=== PATIENT | male | born 1950 | race Caucasian/White ===

== ENCOUNTER 2018-06-01 15:54 | Emergency (ER) | payer OTHER ==
[~2018-06-01] VITALS: Ht 177.8 cm; Wt 74.8 kg
--- NOTE | ~2018-06-01 | EKG ---
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[employer] [employer] : 1950 Requested By: Gela Saldana Order Number: [id number] MD: Christophe Urbina Measurements Intervals [place] Rate: 59 P: 78 MO: 162 QRS: 66 QRSD: 98 T: 76 QT: 387 QTc: 384 Interpretive Statements Sinus bradycardia Otherwise no significant abnormality No previous ECG available for comparison Electronically Signed On 06-01-2018 17:17:57 CDT by Christophe Urbina [email or web address] <ELECTRONICALLY SIGNED> By: Christophe Urbina MD, LOCATED WITHIN [facility] 06/01/18 1717 1706 1706 Christophe Urbina MD, FACC /EPI
[~2018-06-01 15:54] MED LIST: ACCUNEB0.63 MG/3 INH; ADVAIR 100-501 EACH INH; ADVAIR HFA 115-12 GM INH; ALBUTEROL2.5 MG/31 INH; ALLEGRA ALLERG180 MG PO; ALLEGRA180 MG PO; CELEXA 10 MG TA10 M1 PO; CELEXA20 MG PO; CENTRUM SILVER1 EAC2 PO; CLONAZEPAM 1 MG1 M1 PO; COMBIVENT INH; DALIRESP500 MCG PO; DOXYCYCLINE 10100 MG PO; FLEXERIL PO; KLONOPIN1 MG PO; MUCINEX TA600 MG/TA2 PO; NICOTINE TRANSD14 M1 TRANSDERM; PREDNISONE 10 M10 M1 PO; PREDNISONE 10 M10 MG PO; PREDNISONE 20 M20 MG PO; PREDNISONE50 MG PO; PROAIR HFA8.5 GM INH; QUETIAPINE FUMA50 MG PO; SIMVASTATIN20 MG PO; SINGULAIR 10 MG10 M1 PO; SINGULAIR 4 MG C4 M1 PO; SPIRIVA INH; ST. JOSEPH ASPI81 M1 PO; TESTOSTERO200 MG/1 M IM; VENTOLIN HFA 1818 GM INH; XOLAIR150 MG SUBQ; ZOLOFT100 MG PO; ZPAK PO; [UNRECOGNIZED DRUG - OTHER] PO
[2018-06-01 16:45] LABS: ABSOLUTE NEUTROPHILS 12.2 thou/uL (1.4-8.2); BASOPHILS 0.8 % (0.0-2.0); EOSINOPHILS 0.3 % (0.0-3.0); HEMATOCRIT 36.9 % (42.0-52.0); HEMOGLOBIN 12.2 gm/dL (14.0-18.0); LYMPHOCYTES 9.6 % (24.0-44.0); MCH 29.6 pg (26.0-34.0); MCHC 33.1 g/dL (28.0-37.0); MCV 89.3 fL (80.0-100.0); MONOCYTES 6.7 % (1.0-8.0); PLATELET COUNT 228 thou/uL (150-400); POLYS 82.6 % (36.0-66.0); RBC 4.14 mil/uL (4.50-6.00); RDW 13.7 % (10.5-14.5); WBC 14.8 thou/uL (4.0-11.0)
[2018-06-01 16:53] LABS: CALCIUM 8.7 mg/dL (8.5-10.1); POTASSIUM 4.2 mmol/L (3.5-5.1)
[2018-06-01 16:59] LABS: ALBUMIN 3.2 g/dL (3.4-5.0); TOTAL BILIRUBIN 0.7 mg/dL (<0.1-1.0); TOTAL PROTEIN 6.4 g/dL (6.4-8.2)
[2018-06-01 17:12] LABS: BE(vivo) 5.1 mmol/L (-2 to +3); HCO3 30.5 mmol/L (22.0-26.0); PO2 96.3 mmHg (80.0-100.0); pH 7.421 (7.360-7.450); sO2 97.4 % (92.0-98.0)
[2018-06-01 17:35] LABS: URINE BILIRUBIN NEGATIVE (Negative); URINE BLOOD TRACE (Negative); URINE CLARITY CLEAR; URINE COLOR YELLOW; URINE GLUCOSE-RANDOM* NEGATIVE (Negative); URINE KETONES NEGATIVE (Negative); URINE PROTEIN (DIPSTICK) NEGATIVE (Negative); URINE SPECIFIC GRAVITY 1.015 (1.005-1.035); URINE UROBILINOGEN 0.2 E.U./dl (0.2-1.0)
[2018-06-01 17:36] LABS: URINE LEUKOCYTES-REFLEX 3+ (Negative); URINE NITRITE-REFLEX POSITIVE (Negative)
[2018-06-01 17:43] LABS: BACTERIA-REFLEX >30 Many /HPF (None Seen); CASTS None Seen /LPF (None Seen); MUCUS 4-6 Moderate strn/LPF (None Seen); SQUAMOUS 0-3 Few /LPF (0-3); URINE WBC-REFLEX >25 Many /HPF (0-5)
[2018-06-01 17:44] LABS: CRYSTALS None Seen /LPF (None Seen); URINE RBC 0-2 Rare /HPF (0-2); WBC CLUMPS Moderate (None Seen)
[2018-06-01] MEDS ORDERED: BACTRIM DS TAB1 EACH PO (19:18)
== END 2018-06-01 19:32 | disposition home or self-care (01) ==
LOC: ER 15:54
PROVIDERS: Physician Assistant
DX: R60.0 Localized edema (principal); I95.1 Orthostatic hypotension; N39.0 Urinary tract infection, site not specified; F41.9 Anxiety disorder, unspecified; J44.9 Chronic obstructive pulmonary disease, unspecified; F17.210 Nicotine dependence, cigarettes, uncomplicated

== ENCOUNTER → 2019-12-22 | Outpatient (CLI) | payer OTHER ==
[~2019-12-22] MED LIST changes: +BACTRIM DS TAB1 EACH PO
== END ==
LOC: RAD 11:06
DX: J44.9 Chronic obstructive pulmonary disease, unspecified (principal); J45.40 Moderate persistent asthma, uncomplicated; J96.11 Chronic respiratory failure with hypoxia

== ENCOUNTER → 2019-12-30 | Outpatient (CLI) | payer OTHER | LOC: CAT 10:41 | DX: R91.8 Other nonspecific abnormal finding of lung field (principal); J45.50 Severe persistent asthma, uncomplicated; J44.1 Chronic obstructive pulmonary disease with (acute) exacerbation; J96.11 Chronic respiratory failure with hypoxia ==

== ENCOUNTER 2020-01-14 23:34 | Emergency (ER) | payer OTHER ==
[~2020-01-14] VITALS: Ht 188 cm; Wt 108.9 kg
[2020-01-14 23:42] VITALS: BP 139/70
[2020-01-15 00:12] LABS: ABSOLUTE NEUTROPHILS 7.5 thou/uL (1.4-8.2); EOSINOPHILS 0.9 % (0.0-3.0); HEMATOCRIT 45.1 % (42.0-52.0); HEMOGLOBIN 14.3 gm/dL (14.0-18.0); LYMPHOCYTES 19.9 % (24.0-44.0); MCH 29.7 pg (26.0-34.0); MCHC 31.8 g/dL (28.0-37.0); MCV 93.5 fL (80.0-100.0); MONOCYTES 7.5 % (1.0-8.0); PLATELET COUNT 314 thou/uL (150-400); POLYS 70.7 % (36.0-66.0); RBC 4.82 mil/uL (4.50-6.00); RDW 14.1 % (10.5-14.5); WBC 10.7 thou/uL (4.0-11.0)
[2020-01-15 00:14] LABS: POTASSIUM 3.7 mmol/L (3.5-5.1)
[2020-01-15 00:21] LABS: ALBUMIN 3.3 g/dL (3.4-5.0); DIRECT BILIRUBIN 0.1 mg/dL (<0.1-0.2); TOTAL BILIRUBIN 0.5 mg/dL (<0.1-1.0); TOTAL PROTEIN 6.7 g/dL (6.4-8.2)
== END 2020-01-15 04:02 | disposition home or self-care (01) ==
LOC: ER 23:34
PROVIDERS: Emergency Medicine
DX: F43.9 Reaction to severe stress, unspecified (principal); J44.9 Chronic obstructive pulmonary disease, unspecified; J45.909 Unspecified asthma, uncomplicated; F41.9 Anxiety disorder, unspecified; F17.210 Nicotine dependence, cigarettes, uncomplicated; Z90.49 Acquired absence of other specified parts of digestive tract

== ENCOUNTER → 2020-11-06 | Outpatient (CLI) | payer OTHER | LOC: CAT 13:21 | PROVIDERS: ATTEND Internal Medicine | DX: J43.9 Emphysema, unspecified (principal); R91.8 Other nonspecific abnormal finding of lung field; J90 Pleural effusion, not elsewhere classified; J98.4 Other disorders of lung ==

== ENCOUNTER → 2021-03-14 | Outpatient (CLI) | payer OTHER | LOC: CAT 08:55 | PROVIDERS: ATTEND Internal Medicine | DX: J43.9 Emphysema, unspecified (principal); I70.0 Atherosclerosis of aorta; M25.78 Osteophyte, vertebrae; R91.8 Other nonspecific abnormal finding of lung field ==

== ENCOUNTER → 2021-11-07 | Outpatient (CLI) | payer OTHER | LOC: CAT 10-31 11:22 | PROVIDERS: ATTEND Internal Medicine | DX: R91.8 Other nonspecific abnormal finding of lung field (principal); R91.1 Solitary pulmonary nodule ==